=== PATIENT | female | born 1960 | race Caucasian/White ===

== ENCOUNTER 2016-08-04 19:26 | Emergency (ER) | payer MEDICARE, MEDICAID ==
[~2016-08-04] VITALS: Ht 167.6 cm; Wt 99.1 kg
[~2016-08-04 19:26] MED LIST: ASPI81TA2 PO; CITA40TA14 PO; LAMO200T PO; LEVO88TA7 PO; LISINOPRIL; METF500T4 PO; OMEPRAZOLE; RISP4TAB
--- OUTSIDE RECORDS SUMMARY | 2016-08-04 19:32 | XMS REPORT | Continuity of Care Document ---
Author Author [facility] Organization [facility] Address Unknown Phone Unavailable Support Name Relationship Address Phone VINICIUS BUCHANAN HYPERBARIC TECHNICIAN Caregiver [address] [place] [address] Unavailable LOVELY CASTILLO DO Caregiver [address] [place] [address] Unavailable DIANA GARCIA (DPOA) Next Of Kin [address] NEPHI,[facility], Unavailable Insurance Providers Guarantor Geni Chaney Address [address] [place] [address] Email DENIED/NO TO PT PORTAL Payer [facility] Policy Number [id number] Subscriber's Name ChaneyMeenu shiGeni Alfonzo Relationship 18 Self Effective Date 16 Expiration Date 16 Payer Medicare Policy Number [id number] Subscriber's Name Meenu Chaneynathan Mejía Relationship 18 Self Effective Date 15 Chief Complaint and Reason for Visit Chief Complaint General Reason for Visit Encounter for wound re-check Problems Active Problems Medical Problem Onset Date Status Suicidal ideation Unknown Acute Past Problems Medical Problem Onset Date Encounter for wound re-check Unknown Medications Current Home Medications Medication Dose Units Route Directions Days Qty Instructions Start Date Aspirin 81 Mg Tab.chew 1 Tab Oral Daily 08/19/14 Citalopram Hydrobromide (Celexa) 40 Mg Tablet 1 Tab Oral Daily Lamotrigine (Lamictal) 200 Mg Tablet 1 Tab Oral Twice A Day 08/19 Levothyroxine Sodium 88 Mcg Tablet 88 Mcg Oral Before Breakfast Once daily before breakfast. 08/19/14 Lisinopril 08/19/14 Metformin Hcl 500 Mg Tablet 500 Mg Oral Twice Daily With Meals Take one tablet, by mouth, 2 times a day with Meals. 08/19/14 Omeprazole 08/19/14 Social History Social History Problem Response Recorded Date/Time Onset Date Status Hx Alcohol Use No 08/19/2014 7:43pm Not Applicable Not Applicable Tobacco Usage none 08/19/2014 9:16pm Not Applicable Not Applicable Hospital Discharge Instructions No hospital discharge instructions. Plan of Care Discharge Date 08/04/16 1:00pm Disposition 01 DISCHARGED HOME, SELF-CARE Condition at Discharge Stable Prescriptions See Medication Section Referrals LOVELY CASTILLO DO Address: [address] [place] [phone] Additional Instructions/Education Follow up with primary care to let them know the stitches tore and steri strips were applied. You still have one suture in place that will need to be removed. Functional Status No functional status results. Allergies, Adverse Reactions, Alerts Allergen Type Severity Reaction Status Last Updated Codeine Allergy Unknown Active 08/04/16 Immunizations Query Response on File Recorded Date/Time Hx Influenza Vaccination Y DEC 2013 08/19/14 7:43pm Hx Influenza Vaccination Y DEC 2013 08/19/14 7:43pm DTaP Vaccine History UP TO DATE 08/04/16 12:09pm Influenza Vaccine Hx 01/201508/04/16 12:09pm Vital Signs Acute Vital Signs Vital Response Date/Time Temperature (Fahrenheit) 98.3 deg F (96.8 - 99.1) 08/04/2016 12:13pm Temperature (Calculated Celsius) 36.77727 degrees C (36.0 - 37.3) 08/04/2016 12:13pm Pulse Rate (adult) 87 bpm (60 - 100) 08/04/2016 12:13pm Respiratory Rate 16 breaths/min (10 - 20) 08/04/2016 12:13pm O2 Sat by Pulse Oximetry 96 % (90 - 100) 08/04/2016 12:13pm Blood Pressure 109/80 mm Hg 08/04/2016 12:13pm Height (Inches) 65.50 inches 08/04/2016 12:13pm Weight (Kilograms) 99.300 kg 08/04/2016 12:13pm Body Mass Index (BMI) 35.0 08/04/2016 12:13pm Results No known relevant diagnostic tests, laboratory data and/or discharge summary. Procedures No known history of procedures. Encounters Encounter Location Arrival/Admit Date Discharge/Depart Date Attending Provider Departed Emergency Room [facility] 08/04/16 12:04pm 08/04/16 1: 00pm VINICIUS BUCHANAN APRN Recent Diagnosis
--- OUTSIDE RECORDS SUMMARY | 2016-08-04 19:34 | XMS REPORT | Continuity of Care Document ---
Author Author [facility] Organization [facility] Address Unknown Phone Unavailable Allergies Active Description Code Type Severity Reaction Onset Reported/Identified Relationship to Patient Clinical Status Yes CODIENE CODIENE Drug Allergy Severe HALLUCINATIONS 01/26/2014 Yes codeine 1550 Drug Allergy N/A N/A 03/26/2014 Confirmed or Verified Yes Latex X2463 Miscellaneous Allergy Mild RASH 04/27/2014 Yes No Known Drug Allergies - Nkda [id number] Drug Allergy Unknown N/A 04/27/2014 Yes codeine [id number] Drug Allergy Severe HALLUCINATIONS/SICK 05/19/2014 Yes Codeine X386 Drug Allergy Unknown N/A 07/20/2014 Yes Codeine X386 Drug Allergy Severe HALLUCINATES, V 08/24/2014 Yes MDX - Codeine X386 Drug Allergy Severe HALLUCINATES, V 07/17/2016 Yes MDX - Latex X2463 Miscellaneous Allergy Mild RASH 07/17/2016 Yes MDX - No Known Drug Allergies - Nkd [id number] Drug Allergy Unknown N/A 07/17/2016 Medications Problems Date Dx Coded Attending Type Code Diagnosis Diagnosed By 02/04/2012 Liz ESTEBAN, Hudson Andre Final 250.00 DM2/NOS UNCOMP NSU 02/04/2012 Hudson Hill MD Final 272.4 HYPERLIPIDEMIA NEC NOS 02/04/2012 Hudson Hill MD Final 401.9 HYPERTENSION NOS 02/04/2012 Hudson Hill MD Final 786.50 CHEST PAIN NOS 02/04/2012 Hudson Hill MD Admitting 786.50 CHEST PAIN NOS 05/06/2013 Pope EULALIA, Emmanuel Celaya 724.6 05/06/2013 Emmanuel Whyte MD V57.1 03/04/2014 Vitor Jules 244.9 03/04/2014 Vitor Jules 250.00 03/04/2014 Vitor Jules 272.4 03/04/2014 Vitor Jules 277.7 03/04/2014 Vitor Jules W 278.00 03/04/2014 Vitor Jules W 307.50 03/04/2014 Vitor Jules W 311 03/04/2014 Vitor Jules W 593.9 03/04/2014 Vitor Jules W 707.9 03/04/2014 Vitor Jules 716.90 03/04/2014 Vitor Jules 780.57 03/04/2014 Vitor Jules W 785.1 03/04/2014 Vitor Jules W V15.41 03/04/2014 Vitor Jules V85.41 03/05/2014 Vitor Jules 244.9 03/05/2014 Vitor Jules A 250.00 03/05/2014 Vitor Jules W 272.4 03/05/2014 Vitor Jules 277.7 03/05/2014 Vitor Jules 278.00 03/05/2014 Vitor Jules 307.50 03/05/2014 Vitor Jules W 311 03/05/2014 Vitor Jules W 593.9 03/05/2014 Vitor Jules 707.9 03/05/2014 Vitor Jules 716.90 03/05/2014 Vitor Jules 780.57 03/05/2014 Vitor Jules 785.1 03/05/2014 Vitor Jules V15.41 03/05/2014 Vitor Jules V85.41 03/06/2014 Vitor Jules 244.9 03/06/2014 Vitor Jules A 250.00 03/06/2014 Vitor Jules W 272.4 03/06/2014 Vitor Jules W 277.7 03/06/2014 Vitor Jules W 278.00 03/06/2014 Vitor Jules W 307.50 03/06/2014 Vitor Jules W 311 03/06/2014 Vitor Jules W 593.9 03/06/2014 Vitor Jules W 707.9 03/06/2014 Vitor Jules 716.90 03/06/2014 Vitor Jules 780.57 03/06/2014 Vitor Jules 785.1 03/06/2014 Vitor Jules W V15.41 03/06/2014 Vitor Jules W V85.41 03/14/2014 Emmanuel Whyte MD 789.01 03/18/2014 Vitor Jules W 244.9 03/18/2014 Vitor Jules A 250.00 03/18/2014 Vitor Jules 272.4 03/18/2014 Vitor Jules 277.7 03/18/2014 Vitor Jules W 278.00 03/18/2014 Vitor Jules 307.50 03/18/2014 Vitor Jlues 311 03/18/2014 Vitor Jules 593.9 03/18/2014 Vitor Jules 707.9 03/18/2014 Vitor Jules 716.90 03/18/2014 Vitor Jules 780.57 03/18/2014 Vitor Jules 785.1 03/18/2014 Vitor Jules V15.41 03/18/2014 Vitor Jules V85.41 03/20/2014 KARMEN LUONG MD 719.46 JOINT PAIN-L/LEG 03/20/2014 KARMEN LUONG MD 719.46 JOINT PAIN-L/LEG 03/23/2014 Emmanuel Whyte MD 789.01 03/27/2014 COLLEEN BIRD MD 298.9 PSYCHOSIS NOS 03/27/2014 COLLEEN BIRD MD 311 DEPRESSIVE DISORDER NEC 03/27/2014 MARGE ESTEBAN, COLLEEN Mares 427.31 ATRIAL FIBRILLATION 03/27/2014 COLLEEN BIRD MD V62.84 SUICIDE IDEATION 04/02/2014 Vitor Jules 244.9 04/02/2014 Vitor Jules A 250.00 04/02/2014 Vitor Jules 272.4 04/02/2014 Vitor Jules 277.7 04/02/2014 Vitor Jules 278.00 04/02/2014 Vitor Jules 307.50 04/02/2014 Vitor Jules 311 04/02/2014 Vitor Jules 593.9 04/02/2014 Vitor Jules W 707.9 04/02/2014 Vitor Jules W 716.90 04/02/2014 Vitor Jules W 780.57 04/02/2014 Vitor Jules W 785.1 04/02/2014 Vitor Jules V15.41 04/02/2014 Vitor Jules V85.41 04/03/2014 Vitor Jules W 244.9 04/03/2014 Vitor Jules A 250.00 04/03/2014 Vitor Jules W 272.4 04/03/2014 Vitor Jules W 277.7 04/03/2014 Vitor Jules W 278.00 04/03/2014 Vitor Jules W 307.50 04/03/2014 Vitor Jules W 311 04/03/2014 Vitor Jules 593.9 04/03/2014 Vitor Jules 707.9 04/03/2014 Vitor Jules 716.90 04/03/2014 Vitor Jules W 780.57 04/03/2014 Vitor Jules 785.1 04/03/2014 Vitor Jules V15.41 04/03/2014 Vitor Jules V85.41 04/04/2014 Vitor Jules W 244.9 04/04/2014 Vitor Jules A 250.00 04/04/2014 Vitor Jules 272.4 04/04/2014 Vitor Jules 277.7 04/04/2014 Vitor Jules W 278.00 04/04/2014 Vitor Jules W 307.50 04/04/2014 Vitor Jules W 311 04/04/2014 Vitor Jules W 593.9 04/04/2014 Vitor Jules W 707.9 04/04/2014 Vitor Jules 716.90 04/04/2014 Vitor Jules 780.57 04/04/2014 Vitor Jules 785.1 04/04/2014 Vitor Jules V15.41 04/04/2014 Vitor Jules V85.41 04/22/2014 Vitor Jules 244.9 04/22/2014 Jules, Vitor Mares A 250.00 04/22/2014 Jules, Vitor Mares W 272.4 04/22/2014 Jules, Vitor Mares W 277.7 04/22/2014 Jules, Vitor Mares W 278.00 04/22/2014 Jules, Vitor Mares W 307.50 04/22/2014 Jules, Vitor Mares W 311 04/22/2014 Jules, Vitor Mares W 593.9 04/22/2014 Jules, Vitor Mares W 707.9 04/22/2014 Jules, Vitor Mares W 716.90 04/22/2014 Jules, Vitor Mares W 780.57 04/22/2014 Jules, Vitor Mares W 785.1 04/22/2014 Jules, Vitor Celaya V15.41 04/22/2014 Jules, Vitor Celaya V85.41 05/04/2014 Jules, Vitor Mares W 244.9 05/04/2014 Jules, Vitor Mares A 250.00 05/04/2014 Jules, Vitor Mares W 272.4 05/04/2014 Jules, Vitor Mares W 277.7 05/04/2014 Jules, Vitor Mares W 278.00 05/04/2014 Jules, Vitor Mares W 307.50 05/04/2014 Jules, Vitor Mares W 311 05/04/2014 Jules, Vitor Mares W 593.9 05/04/2014 Jules, Vitor Mares W 707.9 05/04/2014 Jules, Vitor Mares W 716.90 05/04/2014 Jules, Vitor Mares W 780.57 05/04/2014 Jules, Vitor Mares W 785.1 05/04/2014 Jules, Vitor Celaya V15.41 05/04/2014 Jules, Vitor Mares W V85.41 05/05/2014 Jules, Vitor Mares W 244.9 05/05/2014 Jules, Vitor Mares A 250.00 05/05/2014 Jules, Vitor Mares W 272.4 05/05/2014 Jules, Vitor Mares W 277.7 05/05/2014 Jules, Vitor Mares W 278.00 05/05/2014 Jules, Vitor Mares W 307.50 05/05/2014 Jules, Vitor Mares W 311 05/05/2014 Jules, Vitor Mares W 593.9 05/05/2014 Vitor Jules W 707.9 05/05/2014 Vitor Jules W 716.90 05/05/2014 Vitor Jules W 780.57 05/05/2014 Vitor Jules W 785.1 05/05/2014 Vitor Jules W V15.41 05/05/2014 Vitor Jules W V85.41 05/13/2014 Vitor Jules W 244.9 05/13/2014 Vitor Jules A 250.00 05/13/2014 Vitor Jules W 272.4 05/13/2014 Vitor Jules W 277.7 05/13/2014 Vitor Jules W 278.00 05/13/2014 Vitor Jules W 307.50 05/13/2014 Vitor Jules W 311 05/13/2014 Vitor Jules 593.9 05/13/2014 Vitor Jules 707.9 05/13/2014 Vitor Jules 716.90 05/13/2014 Vitor Jules W 780.57 05/13/2014 Vitor Jules W 785.1 05/13/2014 Vitor Jules W V15.41 05/13/2014 Vitor Jules V85.41 05/25/2014 OT 250.00 05/25/2014 OT 278.01 05/25/2014 OT 401.9 05/25/2014 OT 715.36 05/25/2014 OT 727.00 05/25/2014 OT V85.41 07/06/2014 W 244.9 07/06/2014 A 250.00 07/06/2014 W 272.4 07/06/2014 W 277.7 07/06/2014 W 278.00 07/06/2014 W 307.50 07/06/2014 W 311 07/06/2014 W 593.9 07/06/2014 W 707.9 07/06/2014 W 716.90 07/06/2014 W 780.57 07/06/2014 W 785.1 07/06/2014 W V85.41 07/13/2014 D 719.7 DIFFICULTY IN WALKING 07/13/2014 D V43.65 KNEE JOINT REPLACEMENT 07/13/2014 D V54.81 JOINT REPL AFTERCARE 07/13/2014 D V57.1 PHYSICAL THERAPY NEC 07/27/2014 Vitor Jules 244.9 07/27/2014 Vitor Jules A 250.00 07/27/2014 Vitor Jules W 272.4 07/27/2014 Vitor Jules 277.7 07/27/2014 Vitor Jules 278.00 07/27/2014 Vitor Jules 307.50 07/27/2014 Vitor Jules W 311 07/27/2014 Vitor Jules 593.9 07/27/2014 Vitor Jules 707.9 07/27/2014 Vitor Jules 716.90 07/27/2014 Vitor Jules 780.57 07/27/2014 Vitor Jules 785.1 07/27/2014 Vitor Jules V15.41 07/27/2014 Vitor Jules V85.41 07/28/2014 Vitor Jules 244.9 07/28/2014 Vitor Jules 250.00 07/28/2014 Vitor Jules 272.4 07/28/2014 Vitor Jules 277.7 07/28/2014 Vitor Jules 278.00 07/28/2014 Vitor Jules 307.50 07/28/2014 Vitor Jules 311 07/28/2014 Vitor Jules 593.9 07/28/2014 Vitor Jules 707.9 07/28/2014 Vitor Jules 716.90 07/28/2014 Vitor Jules 780.57 07/28/2014 Vitor Jules 785.1 07/28/2014 Vitor Jules V15.41 07/28/2014 Vitor Jules V85.41 07/29/2014 Vitor Jules 244.9 07/29/2014 Vitor Jules A 250.00 07/29/2014 Vitor Jules 272.4 07/29/2014 Vitor Jules 277.7 07/29/2014 Vitor Jules 278.00 07/29/2014 Vitor Jules 307.50 07/29/2014 Vitor Jlues W 311 07/29/2014 Vitor Jules W 593.9 07/29/2014 Vitor Jules W 707.9 07/29/2014 Vitor Jules W 716.90 07/29/2014 Vitor Jules W 780.57 07/29/2014 Vitor Jules W 785.1 07/29/2014 Vitor Jules W V15.41 07/29/2014 Vitor Jules W V85.41 07/30/2014 Gee, Alejandra A 781.3 07/30/2014 Gee Alejandra W V15.88 07/30/2014 Pope EULALIA, Emmanuel W 620.2 07/30/2014 Pope EULALIA, Emmanuel A 789.03 07/30/2014 BEDSUJATHA DELACRUZ W 250.00 07/30/2014 BEDROSKARSONI W 573.3 07/30/2014 BEDROSKARSONI A 585.3 07/30/2014 Vitor Jules W 244.9 07/30/2014 Vitor Jules A 250.92 07/30/2014 Vitor Jules W 272.4 07/30/2014 Vitor Jules W 277.7 07/30/2014 Vitor Jules W 278.00 07/30/2014 Vitor Jules W 307.50 07/30/2014 Vitor Jules W 593.9 07/30/2014 Vitor Jules W 707.9 07/30/2014 Vitor Jules W 716.90 07/30/2014 Vitor Jules W 780.57 07/30/2014 Vitor Jules W 785.1 07/30/2014 Vitor Jules W V85.41 07/30/2014 Vitor Jules W 244.9 07/30/2014 Vitor Jules A 250.00 07/30/2014 Vitor Jules W 272.4 07/30/2014 Vitor Jules W 277.7 07/30/2014 JulesVitor rose W 278.00 07/30/2014 Vitor Jules W 307.50 07/30/2014 Vitor Jules W 593.9 07/30/2014 Vitor Jules W 707.9 07/30/2014 JulesVitor rose W 716.90 07/30/2014 Vitor Jules W 780.57 07/30/2014 Vitor Jules W 785.1 07/30/2014 Vitor Jules V85.41 07/30/2014 Vitor Jules W 244.9 07/30/2014 Vitor Jules A 250.00 07/30/2014 Vitor Jules W 272.4 07/30/2014 Vitor Jules W 277.7 07/30/2014 Vitor Jules W 278.00 07/30/2014 JulesVitor rose W 307.50 07/30/2014 Vitor Jules W 593.9 07/30/2014 Vitor Jules W 707.9 07/30/2014 Vitor Jules 716.90 07/30/2014 Vitor Jules 780.57 07/30/2014 Vitor Jules 785.1 07/30/2014 Vitor Jules V85.41 07/30/2014 Vitor Jules W 244.9 07/30/2014 Vitor Jules A 250.00 07/30/2014 Vitor Jules W 272.4 07/30/2014 Vitor Jules W 277.7 07/30/2014 JulesVitor rose W 278.00 07/30/2014 Vitor Jules W 307.50 07/30/2014 Vitor Jules W 311 07/30/2014 Vitor Jules W 593.9 07/30/2014 JulesVitor rose W 707.9 07/30/2014 JulesVitor rose W 716.90 07/30/2014 JulesVitor rose W 780.57 07/30/2014 Vitor Jules 785.1 07/30/2014 Vitor Jules V15.41 07/30/2014 Vitor Jules V85.41 07/30/2014 Emmanuel Whyte MD 789.01 07/30/2014 Vitor Jules W 244.9 07/30/2014 Vitor Jules A 250.00 07/30/2014 Vitor Jules W 272.4 07/30/2014 Vitor Jules W 277.7 07/30/2014 Vitor Jules W 278.00 07/30/2014 Vitor Jules W 307.50 07/30/2014 Vitor Jules W 311 07/30/2014 Vitor Jules W 593.9 07/30/2014 Vitor Jules W 707.9 07/30/2014 Vitor Jules W 716.90 07/30/2014 Vitor Jules W 780.57 07/30/2014 Vitor Jules W 785.1 07/30/2014 Vitor Jules W V15.41 07/30/2014 Vitor Jules V85.41 07/30/2014 Vitor Jules W 244.9 07/30/2014 Vitor Jules A 250.00 07/30/2014 Vitor Jules W 272.4 07/30/2014 Vitor Jules W 277.7 07/30/2014 Vitor Jules W 278.00 07/30/2014 Vitor Jules W 307.50 07/30/2014 Vitor Jules W 311 07/30/2014 Vitor Jules W 593.9 07/30/2014 Vitor Jules 707.9 07/30/2014 Vitor Jules 716.90 07/30/2014 Vitor Jules 780.57 07/30/2014 Vitor Jules W 785.1 07/30/2014 Vitor Jules V15.41 07/30/2014 Vitor Jules W V85.41 07/30/2014 W 244.9 07/30/2014 A 250.00 07/30/2014 W 272.4 07/30/2014 W 277.7 07/30/2014 W 278.00 07/30/2014 W 307.50 07/30/2014 W 311 07/30/2014 W 593.9 07/30/2014 W 707.9 07/30/2014 W 716.90 07/30/2014 W 780.57 07/30/2014 W 785.1 07/30/2014 W V85.41 07/30/2014 Vitor Jules W 244.9 07/30/2014 Vitor Jules A 250.00 07/30/2014 JulesVitor rose W 272.4 07/30/2014 JulesVitor rose W 277.7 07/30/2014 Jules, Vitor Mares W 278.00 07/30/2014 Jules, Vitor Mares W 307.50 07/30/2014 Vitor Juels W 311 07/30/2014 Jules, Vitor Mares W 593.9 07/30/2014 JulesVitor rose W 707.9 07/30/2014 Vitor Jules W 716.90 07/30/2014 Vitor Jules W 780.57 07/30/2014 Vitor Jules W 785.1 07/30/2014 Vitor Jules V15.41 07/30/2014 Vitor Jules V85.41 07/30/2014 Alejandra Gee A 781.3 07/30/2014 GeeLoveda W V15.88 07/30/2014 Pope EULALIA, Emmanuel W 620.2 07/30/2014 Pope EULALIA, Emmanuel A 789.03 07/30/2014 BEDROSSUJATHA W 250.00 07/30/2014 BEDROS, SUJATHA W 573.3 07/30/2014 BEDROS, SUJATHA A 585.3 07/30/2014 Vitor Jules W 244.9 07/30/2014 Vitor Jules A 250.92 07/30/2014 Vitor Jules W 272.4 07/30/2014 JulesVitor rose W 277.7 07/30/2014 JulesVitor rose W 278.00 07/30/2014 JulesVitor rose W 307.50 07/30/2014 JulesVitor rose W 593.9 07/30/2014 JulesVitor rose W 707.9 07/30/2014 Vitor Jules W 716.90 07/30/2014 Vitor Jules W 780.57 07/30/2014 Vitor Jules W 785.1 07/30/2014 Vitor Jules V85.41 07/30/2014 JulesVitor rose W 244.9 07/30/2014 JulesVitor rose A 250.00 07/30/2014 Vitor Jules W 272.4 07/30/2014 JulesVitor rose W 277.7 07/30/2014 Jules, Vitor Mares W 278.00 07/30/2014 Jules, Vitor Mares W 307.50 07/30/2014 Julse, Vitor Mares W 593.9 07/30/2014 JulesVitor rose W 707.9 07/30/2014 JulesVitor rose W 716.90 07/30/2014 Vitor Jules W 780.57 07/30/2014 Vitor Jules W 785.1 07/30/2014 Vitor Jules V85.41 07/30/2014 Vitor Jules W 244.9 07/30/2014 Vitor Jules A 250.00 07/30/2014 Vitor Jules W 272.4 07/30/2014 JulesVitor rose W 277.7 07/30/2014 Vitor Jules W 278.00 07/30/2014 JulesVitor rose W 307.50 07/30/2014 JulesVitor rose 593.9 07/30/2014 JulesVitor rose W 707.9 07/30/2014 JulesVitor rose 716.90 07/30/2014 JulesVitor rose W 780.57 07/30/2014 Vitor Jules 785.1 07/30/2014 Vitor Jules V85.41 07/30/2014 JulesVitor rose W 244.9 07/30/2014 Vitor Jules A 250.00 07/30/2014 JulesVitor rose W 272.4 07/30/2014 JulesVitor rose W 277.7 07/30/2014 JulesVitor rose W 278.00 07/30/2014 JulesVitor rose W 307.50 07/30/2014 JulesVitor rose W 311 07/30/2014 JulesVitor rose W 593.9 07/30/2014 JulesVitor rose W 707.9 07/30/2014 JulesVitor rose W 716.90 07/30/2014 Vitor Jules W 780.57 07/30/2014 Vitor Jules 785.1 07/30/2014 Vitor Jules V15.41 07/30/2014 Vitor Jules V85.41 07/30/2014 Emmanuel Whyte MD 789.01 07/30/2014 Vitor Jules W 244.9 07/30/2014 Vitor Jules A 250.00 07/30/2014 Vitor Jules W 272.4 07/30/2014 JulesVitor rose W 277.7 07/30/2014 JulesVitor rose W 278.00 07/30/2014 Vitor Jules W 307.50 07/30/2014 Vitor Jules W 311 07/30/2014 Vitor Jules W 593.9 07/30/2014 Vitor Jules W 707.9 07/30/2014 Vitor Jules W 716.90 07/30/2014 Vitor Jules W 780.57 07/30/2014 Vitor Jules 785.1 07/30/2014 Vitor Jules V15.41 07/30/2014 Vitor Jules V85.41 07/30/2014 Vitor Jules W 244.9 07/30/2014 Vitor Jules A 250.00 07/30/2014 Vitor Jules W 272.4 07/30/2014 Vitor Jules W 277.7 07/30/2014 Vitor Jules W 278.00 07/30/2014 Vitor Jules W 307.50 07/30/2014 Vitor Jules W 311 07/30/2014 Vitor Jules W 593.9 07/30/2014 Vitor Jules W 707.9 07/30/2014 Vitor Jules W 716.90 07/30/2014 Vitor Jules W 780.57 07/30/2014 Vitor Jules W 785.1 07/30/2014 Vitor Jules W V15.41 07/30/2014 Vitor Jules W V85.41 07/30/2014 W 244.9 07/30/2014 A 250.00 07/30/2014 W 272.4 07/30/2014 W 277.7 07/30/2014 W 278.00 07/30/2014 W 307.50 07/30/2014 W 311 07/30/2014 W 593.9 07/30/2014 W 707.9 07/30/2014 W 716.90 07/30/2014 W 780.57 07/30/2014 W 785.1 07/30/2014 W V85.41 07/30/2014 Vitor Jules 244.9 07/30/2014 Vitor Jules A 250.00 07/30/2014 Vitor Jules W 272.4 07/30/2014 Vitor Jules W 277.7 07/30/2014 Vitor Jules W 278.00 07/30/2014 Vitor Jules W 307.50 07/30/2014 Vitor Jules W 311 07/30/2014 Vitor Jules W 593.9 07/30/2014 Vitor Jules 707.9 07/30/2014 Vitor Jules 716.90 07/30/2014 Vitor Jules 780.57 07/30/2014 Vitor Jules 785.1 07/30/2014 Vitor Jules V15.41 07/30/2014 Vitor Jules V85.41 08/05/2014 Vitor Jules 244.9 08/05/2014 Vitor Jules A 250.00 08/05/2014 Vitor Jules 272.4 08/05/2014 Vitor Jules 277.7 08/05/2014 Vitor Jules W 278.00 08/05/2014 Vitor Jules 307.50 08/05/2014 Vitor Jules W 311 08/05/2014 Vitor Jules 593.9 08/05/2014 Vitor Jules 707.9 08/05/2014 Vitor Jules 716.90 08/05/2014 Vitor Jules 780.57 08/05/2014 Vitor Jules 785.1 08/05/2014 Vitor Jules V15.41 08/05/2014 Vitor Jules V85.41 08/11/2014 SRIDEVI UMANA 295.90 SCHIZOPHRENIA NOS-UNSPEC 08/11/2014 SRIDEVI UMANA 296.80 BIPOLAR DISORDER NOS 08/11/2014 SRIDEVI UMANA 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 08/11/2014 SRIDEVI UMANA 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 08/11/2014 SRIDEVI UMANA V62.84 SUICIDE IDEATION 08/11/2014 NEO CARL MD 295.90 SCHIZOPHRENIA NOS-UNSPEC 08/11/2014 NEO CARL MD 296.80 BIPOLAR DISORDER NOS 08/11/2014 NEO CARL MD 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 08/11/2014 NEO CARL MD 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 08/11/2014 NEO CARL MD V62.84 SUICIDE IDEATION 08/12/2014 MARGE ESTEBAN, COLLEEN Mares 719.7 DIFFICULTY IN WALKING 08/12/2014 MARGE ESTEBAN, COLLEEN Mares V43.65 KNEE JOINT REPLACEMENT 08/12/2014 MARGE ESTEBAN, COLLEEN Mares V54.81 JOINT REPL AFTERCARE 08/12/2014 MARGE ESTEBAN, COLLEEN Mares V57.1 PHYSICAL THERAPY NEC 08/19/2014 Pope EULALIA, Emmanuel W 620.2 08/19/2014 Emmanuel Whyte MD 789.03 08/19/2014 BEDROS, SUJATHA W 250.00 08/19/2014 BEDROS, SUJATHA W 573.3 08/19/2014 BEDROS, SUJATHA A 585.3 08/19/2014 Vitor Jules 244.9 08/19/2014 Vitor Jules 250.92 08/19/2014 Vitor Jules 272.4 08/19/2014 Vitor Jules 277.7 08/19/2014 Vitor Jules 278.00 08/19/2014 Vitor Jules 307.50 08/19/2014 Vitor Jules 593.9 08/19/2014 Vitor Jules 707.9 08/19/2014 Vitor Jules 716.90 08/19/2014 Vitor Jules 780.57 08/19/2014 Vitor Jules 785.1 08/19/2014 Vitor Jules V85.41 08/19/2014 Vitor Jules 244.9 08/19/2014 Vitor Jules 250.00 08/19/2014 Vitor Jules 272.4 08/19/2014 Jules, Vitor Mares W 277.7 08/19/2014 Jules, Vitor Mares W 278.00 08/19/2014 Jules, Vitor Mares W 307.50 08/19/2014 Jules, Vitor Mares W 593.9 08/19/2014 Jules, Vitor Celaya 707.9 08/19/2014 Jules, Vitor Celaya 716.90 08/19/2014 Jules, Vitor Celaya 780.57 08/19/2014 Jules, Vitor Celaya 785.1 08/19/2014 JulesVitor V85.41 08/19/2014 Jules, Vitor Celaya 244.9 08/19/2014 Jules, Vitor Mares A 250.00 08/19/2014 Jules, Vitor Celaya 272.4 08/19/2014 Jules, Vitor Celaya 277.7 08/19/2014 Jules, Vitor Celaya 278.00 08/19/2014 Jules, Vitor Celaya 307.50 08/19/2014 Jules, Vitor Celaya 593.9 08/19/2014 Jules, Vitor Celaya 707.9 08/19/2014 Jules, Vitor Celaya 716.90 08/19/2014 Jules, Vitor Celaya 780.57 08/19/2014 Jules, Vitor Celaya 785.1 08/19/2014 Jules, Vitor Celaya V85.41 08/19/2014 Jules, Vitor Celaya 244.9 08/19/2014 Jules, Vitor Mares A 250.00 08/19/2014 Jules, Vitor Celaya 272.4 08/19/2014 Jules, Vitor Mares W 277.7 08/19/2014 Jules, Vitor Mares W 278.00 08/19/2014 Jules, Vitor Mares W 307.50 08/19/2014 Jules, Vitor Mares W 311 08/19/2014 Jules, Vitor Celaya 593.9 08/19/2014 Jules, Vitor Celaya 707.9 08/19/2014 Jules, Vitor Celaya 716.90 08/19/2014 Jules, Vitor Celaya 780.57 08/19/2014 Jules, Vitor Celaya 785.1 08/19/2014 JulesVitor V15.41 08/19/2014 JulesVitor rose V85.41 08/19/2014 Emmanuel Whyte MD 789.01 08/19/2014 Jules, Vitor Mares W 244.9 08/19/2014 Jules, Vitor Mares A 250.00 08/19/2014 Jules, Vitor Mares W 272.4 08/19/2014 Jules, Vitor Mares W 277.7 08/19/2014 Jules, Vitor Mares W 278.00 08/19/2014 Jules, Vitor Mares W 307.50 08/19/2014 Jules, Vitor Mares W 311 08/19/2014 Jules, Vitor Mares W 593.9 08/19/2014 Jules, Vitor Celaya 707.9 08/19/2014 Jules, Vitor Celaya 716.90 08/19/2014 Jules, Vitor Celaya 780.57 08/19/2014 Jules, Vitor Celaya 785.1 08/19/2014 Jules, Vitor Celaya V15.41 08/19/2014 Jules, Vitor Celaya V85.41 08/19/2014 Jules, Vitor Celaya 244.9 08/19/2014 JulesVitor rose 250.00 08/19/2014 Jules, Vitor Celaya 272.4 08/19/2014 Jules, Vitor Celaya 277.7 08/19/2014 Jules, Vitor Mares W 278.00 08/19/2014 Jules, Vitor Mares W 307.50 08/19/2014 Jules, Vitor Mares W 311 08/19/2014 Jules, Vitor Celaya 593.9 08/19/2014 Jules, Vitor Celaya 707.9 08/19/2014 JulesVitor rose 716.90 08/19/2014 JulesVitor 780.57 08/19/2014 Jules, Vitor Celaya 785.1 08/19/2014 Jules, Vitor Celaya V15.41 08/19/2014 Jules, Vitor Celaya V85.41 08/19/2014 W 244.9 08/19/2014 A 250.00 08/19/2014 W 272.4 08/19/2014 W 277.7 08/19/2014 W 278.00 08/19/2014 W 307.50 08/19/2014 W 311 08/19/2014 W 593.9 08/19/2014 W 707.9 08/19/2014 W 716.90 08/19/2014 W 780.57 08/19/2014 W 785.1 08/19/2014 W V85.41 08/19/2014 Vitor Jules W 244.9 08/19/2014 Vitor Jules A 250.00 08/19/2014 JulesVitor rose W 272.4 08/19/2014 JulesVitor rose W 277.7 08/19/2014 JulesVitor rose W 278.00 08/19/2014 JulesVitor rose W 307.50 08/19/2014 JulesVitor rose W 311 08/19/2014 JulesVitor rose W 593.9 08/19/2014 JulesVitor rose W 707.9 08/19/2014 JulesVitor rose 716.90 08/19/2014 Vitor Jules 780.57 08/19/2014 Vitor Jules 785.1 08/19/2014 Vitor Jules V15.41 08/19/2014 Vitor Jules V85.41 08/31/2014 JulesVitor rose 244.9 08/31/2014 JulesVitor rose A 250.92 08/31/2014 JulesVitor rose 272.4 08/31/2014 JulesVitor rose 277.7 08/31/2014 JulesVitor rose W 278.00 08/31/2014 JulesVitor rose W 307.50 08/31/2014 JulesVitor rose W 311 08/31/2014 JulesVitor rose 593.9 08/31/2014 JulesVitor rose W 707.9 08/31/2014 JulesVitor rose 716.90 08/31/2014 JulesVitor rose W 780.57 08/31/2014 JulesVitor rose 785.1 08/31/2014 Vitor Jules V15.41 08/31/2014 JulesVitor rose V85.41 09/01/2014 Vitor Jules W 244.9 09/01/2014 JulesVitor rose A 250.92 09/01/2014 JulesVitor rose W 272.4 09/01/2014 JulesVitor rose 277.7 09/01/2014 Vitor Jules 278.00 09/01/2014 JulesVitor rose W 307.50 09/01/2014 JulesVitor rose W 311 09/01/2014 Vitor Jules 593.9 09/01/2014 JulesVitor rose 707.9 09/01/2014 JulesVitor rose 716.90 09/01/2014 Vitor Jules 780.57 09/01/2014 Vitor Jules 785.1 09/01/2014 Vitor Jules V15.41 09/01/2014 Vitor Jules V85.41 09/02/2014 Vitor Jules 244.9 09/02/2014 Vitor Jules A 250.92 09/02/2014 JulesVitor rose 272.4 09/02/2014 Vitor Jules 277.7 09/02/2014 Vitor Jules 278.00 09/02/2014 Vitor Jules 307.50 09/02/2014 Vitor Jules 311 09/02/2014 Vitor Jules 593.9 09/02/2014 Vitor Jules 707.9 09/02/2014 Vitor Jules 716.90 09/02/2014 Vitor Jules 780.57 09/02/2014 Vitor Jules 785.1 09/02/2014 Vitor Jules V15.41 09/02/2014 Vitor Jules V85.41 09/08/2014 OT V43.65 09/10/2014 Vitor Jules 244.9 09/10/2014 Vitor Jules A 250.92 09/10/2014 JulesVitor rose 272.4 09/10/2014 JulesVitor rose 277.7 09/10/2014 JulesVitor rose 278.00 09/10/2014 Vitor Jules 307.50 09/10/2014 Vitor Jules W 311 09/10/2014 Vitor Jules 593.9 09/10/2014 Vitor Jules 707.9 09/10/2014 Vitor Jules 716.90 09/10/2014 Vitor Jules 780.57 09/10/2014 Jules, Vitor Mares W 785.1 09/10/2014 Jules, Vitor Celaya V15.41 09/10/2014 Jules, Vitor Celaya V85.41 10/20/2014 Pope EULALIA, Emmanuel W 620.2 10/20/2014 Pope EULALIA, Emmanuel A 789.03 10/20/2014 BEDROS, SUJATHA W 250.00 10/20/2014 BEDROS, SUJATHA W 573.3 10/20/2014 BEDROS, SUJATHA A 585.3 10/20/2014 Jules, Vitor Mares W 244.9 10/20/2014 Jules, Vitor Mares A 250.92 10/20/2014 Jules, Vitor Mares W 272.4 10/20/2014 Jules, Vitor Mares W 277.7 10/20/2014 Jules, Vitor Celaya 278.00 10/20/2014 Jules, Vitor Celaya 307.50 10/20/2014 Jules, Vitor Celaya 593.9 10/20/2014 JulesVitor 707.9 10/20/2014 JulesVitor 716.90 10/20/2014 Jules, Vitor Celaya 780.57 10/20/2014 Jules, Vitor Celaya 785.1 10/20/2014 JulesVitor rose V85.41 10/20/2014 JulesVitor 244.9 10/20/2014 JulesVitor rose A 250.00 10/20/2014 Jules, Vitor Celaya 272.4 10/20/2014 Jules, Vitor Celaya 277.7 10/20/2014 Jules, Vitor Mares W 278.00 10/20/2014 JulesVitor 307.50 10/20/2014 Jules, Vitor Mares W 593.9 10/20/2014 Jules, Vitor Celaya 707.9 10/20/2014 Jules, Vitor Celaya 716.90 10/20/2014 Jules, Vitor Celaya 780.57 10/20/2014 Jules, Vitor Celaya 785.1 10/20/2014 Jules, Vitor Celaya V85.41 10/20/2014 Jules, Vitor Mares W 244.9 10/20/2014 JulesVitor rose A 250.00 10/20/2014 Jules, Vitor Mares W 272.4 10/20/2014 Jules, Vitor Mares W 277.7 10/20/2014 Jules, Vitor Mares W 278.00 10/20/2014 Jules, Vitor Mares W 307.50 10/20/2014 Jules, Vitor Mares W 593.9 10/20/2014 Jules, Vitor Mares W 707.9 10/20/2014 Jules, Vitor Celaya 716.90 10/20/2014 Jules, Vitor Mares W 780.57 10/20/2014 Jules, Vitor Mares W 785.1 10/20/2014 Jules, Vitor Celaya V85.41 10/20/2014 Jules, Vitor Mares W 244.9 10/20/2014 Jules, Vitor Mares A 250.00 10/20/2014 Jules, Vitor Mares W 272.4 10/20/2014 Jules, Vitor Mares W 277.7 10/20/2014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 02/20/2016 Vitor Jules E03.9 HYPOTHYROIDISM, UNSPECIFIED 02/20/2016 Vitor Jules E11.65 TYPE 2 DIABETES MELLITUS WITH HYPERGLYCE 02/20/2016 Vitor Jules E78.4 OTHER HYPERLIPIDEMIA 02/20/2016 Vitor Jules M15.9 POLYOSTEOARTHRITIS, UNSPECIFIED 02/20/2016 Vitor Jules Z68.37 BODY MASS INDEX (BMI) 37.0-37.9, ADULT 03/27/2016 Vitor Jules E03.9 HYPOTHYROIDISM, UNSPECIFIED 03/27/2016 Vitor Jules E11.65 TYPE 2 DIABETES MELLITUS WITH HYPERGLYCE 03/27/2016 Vitor Jules E78.4 OTHER HYPERLIPIDEMIA 03/27/2016 Vitor Jules M15.8 OTHER POLYOSTEOARTHRITIS 03/27/2016 Vitor Jules Z68.35 BODY MASS INDEX (BMI) 35.0-35.9, ADULT 03/29/2016 Vitor Jules E03.9 HYPOTHYROIDISM, UNSPECIFIED 03/29/2016 Vitor Jules E11.65 TYPE 2 DIABETES MELLITUS WITH HYPERGLYCE 03/29/2016 Vitor Jules E78.4 OTHER HYPERLIPIDEMIA 03/29/2016 Vitor Jules M15.8 OTHER POLYOSTEOARTHRITIS 03/29/2016 Vitor Jules Z68.35 BODY MASS INDEX (BMI) 35.0-35.9, ADULT 04/04/2016 Vitor Jules E03.9 HYPOTHYROIDISM, UNSPECIFIED 04/04/2016 Vitor Jules E11.65 TYPE 2 DIABETES MELLITUS WITH HYPERGLYCE 04/04/2016 Vitor Jules E78.4 OTHER HYPERLIPIDEMIA 04/04/2016 Vitor Jules M15.8 OTHER POLYOSTEOARTHRITIS 04/04/2016 Vitor Jules Z68.35 BODY MASS INDEX (BMI) 35.0-35.9, ADULT 05/31/2016 Vitor Jules E03.8 OTHER SPECIFIED HYPOTHYROIDISM 05/31/2016 Vitor Jules E11.65 TYPE 2 DIABETES MELLITUS WITH HYPERGLYCE 05/31/2016 Vitor Jules E78.4 OTHER HYPERLIPIDEMIA 05/31/2016 Vitor Jules M15.8 OTHER POLYOSTEOARTHRITIS 05/31/2016 Vitor Jules Z68.34 BODY MASS INDEX (BMI) 34.0-34.9, ADULT 06/02/2016 Vitor Jules E03.8 OTHER SPECIFIED HYPOTHYROIDISM 06/02/2016 Vitor Jules E11.65 TYPE 2 DIABETES MELLITUS WITH HYPERGLYCE 06/02/2016 Vitor Jules E78.4 OTHER HYPERLIPIDEMIA 06/02/2016 Vitor Jules M15.8 OTHER POLYOSTEOARTHRITIS 06/02/2016 Vitor Jules Z68.34 BODY MASS INDEX (BMI) 34.0-34.9, ADULT 06/12/2016 Vitor Jules E03.8 OTHER SPECIFIED HYPOTHYROIDISM 06/12/2016 Vitor Jules E11.65 TYPE 2 DIABETES MELLITUS WITH HYPERGLYCE 06/12/2016 Vitor Jules E78.4 OTHER HYPERLIPIDEMIA 06/12/2016 Vitor Jules M15.8 OTHER POLYOSTEOARTHRITIS 06/12/2016 Vitor Jules Z68.34 BODY MASS INDEX (BMI) 34.0-34.9, ADULT Procedures Code Description [place] [address] X-RAY EXAM OF KNEE, 1 OR 2 CHERISE ESTEBAN , KARMEN Dsouza 03/20/2014 44106 EMERGENCY DEPT VISIT KARMEN LUONG MD 03/20/2014 37454 EMERGENCY DEPT VISIT CHERISE ESTEBAN, KARMEN Dsouza 03/20/2014 53003 ROUTINE VENIPUNCTURE MARGE ESTEBAN, COLLENE E 03/26/2014 75120 COMPREHEN METABOLIC PANEL MARGE ESTEBAN, COLLEEN E 03/26/2014 46037 COMPLETE CBC, AUTOMATED MARGE ESTEBAN, COLLEEN E 03/26/2014 27897 OBSERVATION CARE MARGE ESTEBAN, COLLEEN E 03/26/2014 65082 EMERGENCY DEPT VISIT MARGE ESTEBAN, COLLEEN E 03/26/2014 00880 OBSERVATION CARE MARGE ESTEBAN, COLLEEN E 03/27/2014 19077 PT EVALUATION MARGE ESTEBAN, COLLEEN E 06/18/2014 60304 HOT OR COLD PACKS THERAPY MARGE ESTEBAN, COLLEEN E 06/18/2014 51024 THERAPEUTIC EXERCISES MARGE ESTEBAN, COLLEEN E 06/18/2014 60134 HOT OR COLD PACKS THERAPY MARGE ESTEBAN, COLLEEN E 06/22/2014 49004 THERAPEUTIC EXERCISES MARGE ESTEBAN, COLLEEN E 06/22/2014 88684 HOT OR COLD PACKS THERAPY MARGE ESTEBAN, COLLEEN E 06/23/2014 95585 THERAPEUTIC EXERCISES MARGE ESTEBAN, COLLEEN E 06/23/2014 38859 HOT OR COLD PACKS THERAPY MARGE ESTEBAN, COLLEEN E 06/25/2014 38301 THERAPEUTIC EXERCISES MARGE ESTEBAN, COLLEEN E 06/25/2014 56423 HOT OR COLD PACKS THERAPY MARGE ESTEBAN, COLLEEN E 06/29/2014 57624 THERAPEUTIC EXERCISES MARGE ESTEBAN, COLLEEN E 06/29/2014 77404 HOT OR COLD PACKS THERAPY MARGE ESTEBAN, COLLEEN E 07/02/2014 89002 THERAPEUTIC EXERCISES MARGE ESTEBAN, COLLEEN E 07/02/2014 80867 THERAPEUTIC EXERCISES MARGE ESTEBAN, COLLEEN E 07/05/2014 71017 HOT OR COLD PACKS THERAPY MARGE ESTEBAN, COLLEEN E 07/07/2014 93616 THERAPEUTIC EXERCISES MARGE ESTEBAN, COLLEEN E 07/07/2014 07529 THERAPEUTIC EXERCISES MARGE ESTEBAN, COLLEEN E 07/09/2014 37070 THERAPEUTIC EXERCISES MARGE ESTEBAN, COLLEEN E 07/14/2014 89409 HOT OR COLD PACKS THERAPY MARGE ESTEBAN, COLLEEN E 07/16/2014 12536 THERAPEUTIC EXERCISES MARGE ESTEBAN, COLLEEN E 07/16/2014 38703 THERAPEUTIC EXERCISES MARGE ESTEBAN, COLLEEN E 07/19/2014 90962 HOT OR COLD PACKS THERAPY MARGE ESTEBAN, COLLEEN E 07/23/2014 16455 THERAPEUTIC EXERCISES MARGE ESTEBAN, COLLEEN E 07/23/2014 26313 ROUTINE VENIPUNCTURE SIDDHARTHA ESTEBAN, NEO Cano 08/11/2014 49179 COMPREHEN METABOLIC PANEL SIDDHARTHA ESTEBAN, NEO Cano 08/11/2014 64729 DRUG SCREEN NON TLC DEVICES SIDDHARTHA ESTEBAN, NEO Cano 08/11/2014 03350 URINALYSIS, AUTO W/SCOPE SIDDHARTHA ESETBAN, NEO Cano 08/11/2014 27236 COMPLETE CBC W/AUTO DIFF WBC SIDDHARTHA ESTEBAN, NEO Cano 08/11/2014 12359 CULTURE AEROBIC IDENTIFY SIDDHARTHA ESTEBAN, NEO Cano 08/11/2014 91865 URINE BACTERIA CULTURE SIDDHARTHA ESTEBAN, NEO Rachael 08/11/2014 46151 MICROBE SUSCEPTIBLE, SAMUEL SIDDHARTHA ESTEBAN, NEO Cano 08/11/2014 90130 EMERGENCY DEPT VISIT SIDDHARTHA ESTEBAN, NEO Cano 08/11/2014 50926 EMERGENCY DEPT VISIT SRIDEVI UMANA 08/11/2014 Results Test Result Range Hemogram - 03/26/14 20:47 Platelet 231 10^3u 130-450 RBC 3.80 10^6u 4.20-5.40 HCT 35.3 % 37.0-47.0 WBC 8.80 10^3u 4.80-10.80 MPV 10.4 FL HGB 11.5 G/DL 12.0-16.0 MCHC 32.6 G/DL 32.0-36.0 MCH 30.3 PG 27.0-31.2 MCV 92.9 fL 80.0-100.0 Comprehensive Metabolic W Glob - 03/26/14 21:06 Bun/Creat 22.3 RATIO AST 15 U/L 17-59 A/G Ratio 1.4 RATIO Anion GAP 8 mmol ALT 24 U/L 21-72 Alk Phos 50 U/L 38-126 Sodium 137 MMOLL 137-145 Albumin 3.6 G/DL 3.5-5.0 T Bili < .1 MG/DL 0.2-1.3 T. Protein 6.1 G/DL 6.3-8.2 Osmo Calculated 273 MOSM Creatinine 1.2 MG/DL 0.8-1.5 Chloride 97 MMOLL 98-107 CO2 31 MMOLL 22-30 Glucose 170 MG/DL 75-110 Globulin 2.5 MG/DL Calcium 10.4 MG/DL 8.4-10.2 Potassium 4.6 MMOLL 3.6-5.0 BUN 26 MG/DL 9-20 Encounters ACCT No. Visit Date/Time Discharge Status Pt. Type Provider Facility Loc./Unit Complaint [id number] 02/04/2012 11:17:00 2011 23:59:59 [facility] [place] [facility]
[2016-08-04 19:39] VITALS: Ht 167.6 cm; Wt 99.1 kg
--- NOTE | 2016-08-04 19:46 | NUR ---
DR DR REYES AT BEDSIDE.
--- NOTE | 2016-08-04 19:54 | ERPDOC ---
Departure Disposition Decision Date: Aug 04, 2016 Disposition Decision Time: 19:53 Disposition: 01 DISCHARGED HOME, SELF-CARE Impression Impression Impression: Primary Impression: Encounter for wound re-check Severity: Moderate Condition: Improved Seen By: Physician only Referrals: LOVELY CASTILLO DO (Family) Patient Instructions: Steristrips (ED) Problems/Meds/Labs Reviewed?: Yes Medications reviewed and manag: Yes Additional Instructions: Keep wound dressing in place, clean, and dry for 24 hours. Thereafter follow instructions on Steristrip care Follow up care ordered?: Yes Mental Status: Alert HPI General Chief Complaint: General Stated Complaint: RIPPED STITCHES RT LEG Time Seen by Provider: 19:45 Source: patient Exam Limitations: no limitations HPI Wound Recheck Initial Comments Patient had a biopsy last week of the right medial aspect of the thigh. Today while the patient was putting on jeans she tore out to the 3 stitches, and was seen at [facility], [facility]. After thorough washing patient had 3 Steri-Strips placed, but after she got home and doing her routine activities, she pulled off the Steri-Strips again. Since with no pain, no bleeding, but a gaping wound. Severity: mild Symptoms since injury: gaping of wound, DENIES: drainage, fever, increasing pain, loss of motion, numbness, red streaks, redness, swelling, weakness Allergies: Coded Allergies: codeine (Verified Allergy, Unknown, 08/04/16) Past History Past Medical History Metabolic: diabetes, hypertension Cardiac: other Female: renal insufficiency Neurological: neuropathy Surgical History Joint: knee Vaccines Hx Influenza Vaccination: Yes (DEC 2013) Social History Substance Use Type: does not use Alcohol Intake: none Review of Systems Constitutional Constitutional: DENIES: appetite decrease, appetite increase, chills, dizziness , fever, weakness ENMT Ears: DENIES: pain Hearing: DENIES: hearing loss, tinnitus Balance: DENIES: vertigo Mouth/Throat: DENIES: change in swallowing, change in voice, hoarsness, painful swallowing, sore throat Cardiovascular Cardiac: DENIES: chest pain, dyspnea on exertion Rhythm/Rate: DENIES: irregular beat, palpitations, tachycardia Vascular: DENIES: pedal edema Pulmonary Respiratory: DENIES: cough, dyspnea, pleuritic chest pain GI Upper Abdomen: DENIES: dysphagia, heartburn/indigestion, nausea, pain, vomiting Lower Abdomen: DENIES: blood in stool, constipation, diarrhea, pain General: DENIES: burning, dysuria, frequency, pain, urgency Musculoskeletal General: DENIES: cramps, joint pain, joint swelling, pain, weakness Integumentary Skin: DENIES: rash, sores Neurological General: DENIES: headache, numbness, tingling, vertigo, weakness Psychiatric Psychiatric: DENIES: anxiety, depression, nervousness Hematologic/Lymphatic Hematologic/Lymphatic: DENIES: easy bruising, frequent nosebleeds Exam General General Nourishment: well nourished, well developed, appears stated age, obese General Body Habitus: well groomed Vital Signs: RN Vital Signs have been reviewed: Yes, Temperature: 98.9, Source : Oral, Heart Rate: 87, Respiratory Rate: 16, BP: 143/64, Pulse Oximetry: 97 Height (Feet): 5 Height (Inches): 6.00 Fastrak Wound Recheck Comments Patient has a 2 cm surgical wound on the medial right anterior thigh, 1-2 mm gaping at the distal portion of the wound only. Has no tenderness, no redness, no erythema or swelling, no active bleeding. Neurologic RN Documented GCS Eye Opening: Verbal: Motor: Total: Progress Progress Progress Patient had thorough cleansing the wound with Hibiclens and water, and Steri- Strips were replaced with the coating of tincture of benzoin, and then a dressing on top of that to reduce friction on the wound. NEO REYES MD Aug 04, 2016 19:54
[2016-08-04] MEDS ORDERED: CARI3CAP PO (20:00)
[2016-08-04] MEDS ORDERED: CHOL200029 PO (20:00)
[2016-08-04] MEDS ORDERED: FOLI-75 PO (20:00)
[2016-08-04] MEDS ORDERED: LINA5TAB PO (20:00)
[2016-08-04] MEDS ORDERED: MELA5TAB14 PO (20:00)
[2016-08-04] MEDS ORDERED: VILA20TA PO (20:00)
[2016-08-04] MEDS ORDERED: LOVA10TA2 PO (20:00)
[2016-08-04] MEDS ORDERED: CYAN10009 PO (20:01)
[2016-08-04 20:02] VITALS: BP 143/64; PULSE 87; RESP 16; TEMP 98.9; O2SAT 97
--- NOTE | 2016-08-04 20:02 | NUR ---
DISMISS PT AMBULATORY TO LOBBY, DRESSING INTACT.
--- OUTSIDE RECORDS SUMMARY | 2016-08-04 20:33 | XMS REPORT | Continuity of Care Document ---
Author Author [facility] Organization [facility] Address Unknown Phone Unavailable Allergies Active Description Code Type Severity Reaction Onset Reported/Identified Relationship to Patient Clinical Status Yes CODIENE CODIENE Drug Allergy Severe HALLUCINATIONS 01/26/2014 Yes codeine 1550 Drug Allergy N/A N/A 03/26/2014 Confirmed or Verified Yes Latex X2463 Miscellaneous Allergy Mild RASH 04/27/2014 Yes No Known Drug Allergies - Nkda [id number] Drug Allergy Unknown N/A 04/27/2014 Yes codeine [id number] Drug Allergy Severe HALLUCINATIONS/SICK 05/19/2014 Yes Codeine X386 Drug Allergy Unknown N/A 07/20/2014 Yes Codeine X386 Drug Allergy Severe HALLUCINATES, V 08/24/2014 Yes MDX - Codeine X386 Drug Allergy Severe HALLUCINATES, V 07/17/2016 Yes MDX - Latex X2463 Miscellaneous Allergy Mild RASH 07/17/2016 Yes MDX - No Known Drug Allergies - Nkd E04758 Drug Allergy Unknown N/A 07/17/2016 Medications Problems [...] CHEST PAIN NOS 05/06/2013 Pope EULALIA, Emmanuel eClaya 724.6 05/06/2013 Emmanuel Whyte MD V57.1 03/04/2014 [...] 278.00 03/18/2014 Vitor Jules 307.50 03/18/2014 Vitor Jules 311 03/18/2014 Vitor Jules 593.9 03/18/2014 Vitor [...] 278.00 07/29/2014 Vitor Jules 307.50 07/29/2014 Vitor Jules W 311 07/29/2014 Vitor Jules W 593.9 [...] 307.50 07/30/2014 Vitor Jules W 593.9 07/30/2014 iVtor Jules W 707.9 07/30/2014 JulesVitor rose W [...] Jules, Vitor Mares W 307.50 07/30/2014 Vitor Jules W 311 07/30/2014 Jules, Vitor Mares W [...] 07/30/2014 Jules, Vitor Mares W 307.50 07/30/2014 Jules, Vitor Mares W 593.9 07/30/2014 [...] Jules V15.41 07/30/2014 Vitor Jules V85.41 08/05/2014 Viotr Jules 244.9 08/05/2014 Vitor Jules A 250.00 [...] Jules, Vitor Mares W 244.9 10/20/2014 Jules, iVtor Mares A 250.92 10/20/2014 Jules, Vitor Mares [...] Vitor Mares W 272.4 10/20/2014 Jules, Vitor Mraes W 277.7 10/20/2014 Jules, Vitor Mares W [...] 307.50 10/20/2014 JulesVitor rose W 311 10/20/2014 JulesVitor rose W 593.9 10/20/2014 Vitor Jules 707.9 [...] 10/20/2014 Jules, Vitor Celaya 593.9 10/20/2014 Jules, Vitro Celaya 707.9 10/20/2014 Jules, Vitor Celaya 716.90 [...] Vitor Mares W 707.9 10/29/2014 Jules, Vitor Maers W 716.90 10/29/2014 Jules, Vitor Mares W [...] W 277.7 12/03/2014 JulesVitor W 278.00 12/03/2014 JulesVitor W 307.50 12/03/2014 JulesVitor W 311 12/03/2014 [...] Jules G47.30 02/14/2015 Vitor Jules M19.90 02/14/2015 Vtior Jules N28.9 02/14/2015 Vitor Jules R00.2 02/14/2015 [...] F50.9 03/26/2015 Jules, Vitor Celaya G47.30 03/26/2015 JulseVitor rose M19.90 03/26/2015 JulesVitor rose M72.2 03/26/2015 [...] 05/09/2015 Jules, Vitor Celaya Z68.41 06/22/2015 Jules, Vitor Celaya E03.9 06/22/2015 Jules, Vitor Mejía E11.65 [...] TYPE 2 DIABETES MELLITUS WITH HYPERGLYCE 08/08/2015 Vitor Jules E78.4 OTHER HYPERLIPIDEMIA 08/08/2015 Vitor Jules [...] Procedures Code Description [place] [address] X-RAY EXAM OF KNEE, 1 OR 2 CHERISE ESTEBAN , KARMEN Dsouza 03/20/2014 61866 EMERGENCY DEPT VISIT KARMEN LUONG MD 03/20/2014 25828 EMERGENCY DEPT VISIT CHERISE ESTEBAN, KARMEN Dsouza 03/20/2014 28224 ROUTINE VENIPUNCTURE MARGE ESTEBAN, COLLEEN E 03/26/2014 68663 COMPREHEN METABOLIC PANEL MARGE ESTEBAN, COLLEEN E 03/26/2014 10382 COMPLETE CBC, AUTOMATED MARGE ESTEBAN, COLLEEN E 03/26/2014 85121 OBSERVATION CARE MARGE ESTEBAN, COLLEEN E 03/26/2014 43510 EMERGENCY DEPT VISIT MARGE ESTEBAN, COLLEEN E 03/26/2014 31578 OBSERVATION CARE MARGE ESTEBAN, COLLEEN E 03/27/2014 84119 PT EVALUATION MARGE ESTEBAN, COLLEEN E 06/18/2014 59056 HOT OR COLD PACKS THERAPY MARGE ESTEBAN, COLLEEN E 06/18/2014 96523 THERAPEUTIC EXERCISES MARGE ESTEBAN, COLLEEN E 06/18/2014 18071 HOT OR COLD PACKS THERAPY MARGE ESTEBAN, COLLEEN E 06/22/2014 23186 THERAPEUTIC EXERCISES MARGE ESTEBAN, COLLEEN E 06/22/2014 52255 HOT OR COLD PACKS THERAPY MARGE ESTEBAN, COLLEEN E 06/23/2014 29428 THERAPEUTIC EXERCISES MARGE ESTEBAN, COLLEEN E 06/23/2014 03529 HOT OR COLD PACKS THERAPY MARGE ESTEBAN, COLLEEN E 06/25/2014 74800 THERAPEUTIC EXERCISES MARGE ESTEBAN, COLLEEN E 06/25/2014 58558 HOT OR COLD PACKS THERAPY MARGE ESTEBAN, COLLEEN E 06/29/2014 31922 THERAPEUTIC EXERCISES MARGE ESTEBAN, COLLEEN E 06/29/2014 27444 HOT OR COLD PACKS THERAPY MARGE ESTEBAN, COLLEEN E 07/02/2014 80771 THERAPEUTIC EXERCISES MARGE ESTEBAN, COLLEEN E 07/02/2014 74735 THERAPEUTIC EXERCISES MARGE ESTEBAN, COLLEEN E 07/05/2014 56160 HOT OR COLD PACKS THERAPY MARGE ESTEBAN, COLLEEN E 07/07/2014 67373 THERAPEUTIC EXERCISES MARGE ESTEBAN, COLLEEN E 07/07/2014 56629 THERAPEUTIC EXERCISES MARGE ESTEBAN, COLLEEN E 07/09/2014 86110 THERAPEUTIC EXERCISES MARGE ESTEBAN, COLLEEN E 07/14/2014 13986 HOT OR COLD PACKS THERAPY MARGE ESTEBAN, COLLEEN E 07/16/2014 57762 THERAPEUTIC EXERCISES MARGE ESTEBAN, COLLEEN E 07/16/2014 91429 THERAPEUTIC EXERCISES MARGE ESTEBAN, COLLEEN E 07/19/2014 39181 HOT OR COLD PACKS THERAPY MARGE ESTEBAN, COLLEEN E 07/23/2014 25432 THERAPEUTIC EXERCISES MARGE ESTEBAN, COLLEEN E 07/23/2014 71629 ROUTINE VENIPUNCTURE SIDDHARTHA ESTEBAN, NEO Cano 08/11/2014 49582 COMPREHEN METABOLIC PANEL SIDDHARTHA ESTEBAN, NEO Cano 08/11/2014 38038 DRUG SCREEN NON TLC DEVICES SIDDHARTHA ESTEBAN, NEO Cano 08/11/2014 05280 URINALYSIS, AUTO W/SCOPE SIDDHARTHA ESTEBAN, NEO Cano 08/11/2014 39016 COMPLETE CBC W/AUTO DIFF WBC SIDDHARTHA ESTEBAN, NEO Cano 08/11/2014 44602 CULTURE AEROBIC IDENTIFY SIDDHARTHA ESTEBAN, NEO Cano 08/11/2014 13956 URINE BACTERIA CULTURE SIDDHARTHA ESTEBAN, NEO Rachael 08/11/2014 25877 MICROBE SUSCEPTIBLE, SAMUEL SIDDHARTHA ESTEBAN, NEO Cano 08/11/2014 83112 EMERGENCY DEPT VISIT SIDDHARTHA ESTEBAN, NEO Cano 08/11/2014 15299 EMERGENCY DEPT VISIT SRIDEVI UMANA 08/11/2014 Results [...] Status Pt. Type Provider Facility Loc./Unit Complaint [id number] 02/04/2012 11:17:00 2011 23:59:59 [facility] [place] [facility]
== END 2016-08-04 20:02 | disposition home or self-care (01) ==
LOC: ED 19:26
DX: Z48.817 Encounter for surgical aftercare following surgery on the skin and subcutaneous tissue (principal)